=== PATIENT | female | born 1985 | race Caucasian/White ===

== ENCOUNTER → 2022-08-18 | Outpatient (CLI) | payer OTHER ==
[~2022-08-18] MED LIST: ALBU90OI INH; DOXY100 PO; HYDACE5 PO; NAPR500 PO; NORETHTP TOP; PRED20 PO; PROACE100 PO; PSEHYDGUAL PO; RXPROACE PO
[2022-08-20 15:10] LABS: HPV 16 Negative (Negative); HPV 18 Negative (Negative); HPV OTHER HR TYPES Negative (Negative)
== END ==
LOC: LAB SHORT 13:46 → LAB 13:46
PROVIDERS: Obstetrics & Gynecology
DX: Z01.419 Encounter for gynecological examination (general) (routine) without abnormal findings (principal)
CPT/HCPCS: 87624; G0123

== ENCOUNTER 2023-08-30 22:41 | Emergency (ER) | payer OTHER ==
[~2023-08-30] VITALS: Ht 160 cm; Wt 56.7 kg
[2023-08-30 22:50] VITALS: BP 160/91
== END 2023-08-30 23:30 | disposition home or self-care (01) ==
LOC: ER 22:41
DX: K12.0 Recurrent oral aphthae (principal); K08.89 Other specified disorders of teeth and supporting structures; J45.909 Unspecified asthma, uncomplicated; Z87.891 Personal history of nicotine dependence
CPT/HCPCS: 96372; 99282-25; J1885